=== PATIENT | male | born 1950 | race Caucasian/White ===

== ENCOUNTER 2021-09-07 10:39 | Outpatient (RCR) | payer MEDICARE, BC | END 2021-09-09 | disposition home or self-care (01) | PROVIDERS: ATTEND Urology | DX: C67.9 Malignant neoplasm of bladder, unspecified (principal); I10 Essential (primary) hypertension ==

== ENCOUNTER 2021-10-04 10:36 | Outpatient (RCR) | payer MEDICARE, BC | END 2021-10-04 11:26 | disposition home or self-care (01) | PROVIDERS: ATTEND Urology | DX: C67.9 Malignant neoplasm of bladder, unspecified (principal); I10 Essential (primary) hypertension ==